=== PATIENT | male | born 1960 | race Caucasian/White ===

== ENCOUNTER 2022-02-28 09:10 | Emergency (ER) | payer OTHER ==
[~2022-02-28] VITALS: Ht 165.1 cm; Wt 86.6 kg
[2022-02-28 09:27] VITALS: BP 150/84
--- NOTE | 2022-02-28 09:35 | NUR ---
PER DR. DIETZ PATIENT OKAY TO WAIT IN LOBBY
--- NOTE | 2022-02-28 09:55 | NUR ---
AMBULATED TO BED 3
--- NOTE | 2022-02-28 10:07 | NUR ---
61/M BIB SELF, NO C/O PAIN. PT STATES HIS SON 1 MONTH AGO AND HE HAS BEEN HAVING FEELINGS OF SADNESS. PT HAVE NO FAMILY AND FAMILY SUPPORT AND NEEDS TO TALK TO SOMEONE. DENIES IVAN BROWN. AGNES PMH: GLAUCOMA, CHOLESTEROL
--- NOTE | 2022-02-28 10:38 | NUR ---
DR DIETZ AT BEDSIDE.
[2022-02-28] MEDS ORDERED: DIPH25TA53 PO (10:47)
[2022-02-28 11:00] VITALS: BP 147/75
--- NOTE | 2022-02-28 11:00 | NUR ---
Patient discharged with v/s stable. Written and verbal after care instructions given and explained. Patient alert, oriented and verbalized understanding of instructions. Ambulatory with steady gait. All questions addressed prior to discharge. ID band removed. Patient advised to follow up with PMD. Rx of BENADRYL given. Patient educated on indication of medication including possible reaction and side effects. Opportunity to ask questions provided and answered.
== END 2022-02-28 11:00 | disposition home or self-care (01) ==
LOC: MED 09:10
DX: F32.9 Major depressive disorder, single episode, unspecified (principal); G47.00 Insomnia, unspecified; F17.200 Nicotine dependence, unspecified, uncomplicated
CPT/HCPCS: 99282